=== PATIENT | female | born 2000 | race Asian ===

== ENCOUNTER 2023-12-16 20:43 | Emergency (ER) | payer OTHER ==
[~2023-12-16] VITALS: Ht 160 cm; Wt 57.2 kg
[2023-12-16 20:47] VITALS: BP 123/63; PULSE 65; RESP 14; TEMP 98.5; O2SAT 99
[2023-12-16 21:30] VITALS: BP 123/63; PULSE 65; RESP 14; TEMP 98.5; O2SAT 99
== END 2023-12-16 21:30 | disposition home or self-care (01) ==
LOC: MED 20:43
DX: K20.90 Esophagitis, unspecified without bleeding (principal)
CPT/HCPCS: 70360; 99283